=== PATIENT | female | born 1980 | race Two or more races ===

== ENCOUNTER 2019-04-06 05:35 | Day surgery (SDC) | payer OTHER ==
[~2019-04-06 05:35] MED LIST: ANAPROX PO; DICY20TA PO; NAPRELAN PO
[2019-04-06] MEDS ORDERED: ULTRACET PO (10:52)
[2019-04-06] MEDS ORDERED: COLACE100 MG PO (10:52)
[2019-04-06] MEDS ORDERED: NAPROXEN375 MG PO (10:53)
== END 2019-04-06 14:00 | disposition home or self-care (01) ==
LOC: CIR.AMB 05:35
DX: N84.0 Polyp of corpus uteri (principal); N73.6 Female pelvic peritoneal adhesions (postinfective)